=== PATIENT | female | born 1990 | race Caucasian/White ===

== ENCOUNTER 2019-01-21 04:05 | Observation (INO) | payer MEDICAID ==
[~2019-01-21] VITALS: Ht 162.6 cm; Wt 60.5 kg
[2019-01-21] MEDS ORDERED: ADENOSINE 6 MG/2 ML ONE (04:18)
[2019-01-21] MEDS ORDERED: LORazepam 2 MG/ML, 1ML ONE ×2 (04:33→05:12)
[2019-01-21 04:55] LABS: BASOPHILS # (AUTO) 0.06 x10^3/uL (0-0.1); BASOPHILS % (AUTO) 1 % (0-1); EOSINOPHILS # (AUTO) 0.11 x10^3/uL (0-0.4); EOSINOPHILS % (AUTO) 1 % (1-7); LYMPHOCYTES # (AUTO) 3.01 x10^3/uL (1-3.4); LYMPHOCYTES % (AUTO) 36 % (22-44); MD NO; MEAN CORPUSCULAR HEMOGLOBIN 30.6 pg (27.0-34.8); MEAN CORPUSCULAR HGB CONC 33.1 g/dL (32.4-35.8); MEAN CORPUSCULAR VOLUME 92.6 fL (80-100); MEAN PLATELET VOLUME 8.1 fL (7.4-10.4); MONOCYTES # (AUTO) 0.62 x10^3/uL (0.2-0.8); MONOCYTES % (AUTO) 7 % (2-9); NEUTROPHILS # (AUTO) 4.54 x10^3/uL (1.8-6.8); NEUTROPHILS % (AUTO) 55 % (42-75); PLATELET COUNT 299 x10^3/uL (130-400); RED BLOOD COUNT 4.62 x10^6/uL (3.82-5.3); RED CELL DISTRIBUTION WIDTH 13.1 % (9.6-15.2)
--- NOTE | 2019-01-21 05:00 | NUR ---
PT IN HOSPITAL GOWN. PT HOOKED UP TO JONO FOR ADENESINE ADMIN. FLUIDS INFUSING. MINIMAL IMPROVEMENT IN PT HR AFTER ADENESINE ADMIN. ATTEMPTING SECOND IV PLACEMENT AT THIS TIME. PT C/O BILAT LEG PAIN FROM SHAKES. PT STATED HAS TAKEN ADRIFANIL AT 0600 YESTERDAY. WAS TAKING KRADEN BUT STOPPED.
[2019-01-21 05:02] LABS: ANION GAP 11 mmol/L (5-15); CALCIUM 8.5 mg/dL (8.5-10.1); CHLORIDE 111 mmol/L (98-107); CREATININE 0.81 mg/dL (0.55-1.02)
[2019-01-21 05:23] LABS: SALICYLATE LEVEL < 1.7 mg/dL (2.8-20.0)
[2019-01-21] MEDS ORDERED: ADENOSINE 6 MG/2 ML IVPush ONE ×2 (05:30)
[2019-01-21] MEDS ORDERED: SODIUM CHLORIDE 0.9% 1,000ML IVBOLUS ONE (05:30)
[2019-01-21] MEDS ORDERED: LORazepam 2 MG/ML, 1ML IVPush ONE (05:30)
[2019-01-21] MEDS ORDERED: POTASSIUM CHLORIDE 20 MEQ in SODIUM CHLORIDE 0.9% 250 ML IV ONE (05:30)
--- NOTE | 2019-01-21 05:45 | NUR ---
PT ABLE TO USE BEDSIDE COMMODE WITH ONE PERSON ASSIST. PT HR REMAINS 140s. BILAT BEDRAILS UP. WILL CONTINUE TO MONITOR.
[2019-01-21 06:09] LABS: AMPHETAMINE SCREEN, URINE Negative (Negative); BARBITURATE SCREEN, URINE Negative (Negative); BENZODIAZEPINE SCREEN, URINE Negative (Negative); CANNABINOID SCREEN, URINE Positive (Negative); COCAINE SCREEN, URINE Negative (Negative); METHADONE SCREEN, URINE Negative (Negative); OPIATE SCREEN, URINE Negative (Negative)
--- NOTE | 2019-01-21 06:26 | NUR ---
PT RESTING CALMLY IN BED. NO C/O CHEST PAIN. HR 144, OTHER VSS, SEE CHARTED. PT TO BE ADMITTED. WILL CONTINUE TO MONITOR.
--- NOTE | 2019-01-21 06:56 | NUR ---
REPORT TO ASHLYN Delacruz
--- NOTE | 2019-01-21 07:15 | NUR ---
OBTAINED REPORT FROM DARYL RODRIGUEZ
--- NOTE | 2019-01-21 07:35 | NUR ---
PT IS RESTING IN BED COMFORTABLY. AT BEDSIDE. PT STILL TACHY AND HYPOTENTSIVE.
--- NOTE | 2019-01-21 09:19 | NUR ---
REPORT GIVEN TO MARCIO
[2019-01-21 12:59] VITALS: BP 120/70
[2019-01-21] MEDS ORDERED: ONDANSETRON ODT 4 MG PO PRN (15:30)
[2019-01-21] MEDS ORDERED: LABETALOL 5MG/ML, 20ML IVPush PRN (15:30)
[2019-01-21] MEDS ORDERED: ONDANSETRON 2MG/ML, 2ML IVPush PRN (15:30)
[2019-01-21] MEDS ORDERED: POLYETHYLENE GLYCOL 17 GM PACKET PO PRN (15:30)
[2019-01-21 16:29] LABS: FREE T4 (FREE THYROXINE) 0.85 ng/dL (0.76-1.46)
[2019-01-21] MEDS: SODIUM CHLORIDE 0.9% 1,000 ML IV SCH ×2 (17:00→23:23)
[2019-01-21 19:22] VITALS: BP 109/67
[2019-01-21] MEDS ORDERED: IBUPROFEN 200 MG TABLET PO PRN (22:00)
[2019-01-21] MEDS ORDERED: POTASSIUM CHLORIDE 20 MEQ TAB.ER.PRT PO ONE (23:00)
[2019-01-21 23:37] LABS: TROPONIN I < 0.015 ng/mL (0.000-0.045)
[2019-01-22] VITALS (7 sets, daily range): BP systolic 97–109; BP diastolic 60–72
[2019-01-22 04:23] LABS: BASOPHILS # (AUTO) 0.03 x10^3/uL (0-0.1); BASOPHILS % (AUTO) 0 % (0-1); EOSINOPHILS # (AUTO) 0.23 x10^3/uL (0-0.4); EOSINOPHILS % (AUTO) 4 % (1-7); LYMPHOCYTES % (AUTO) 25 % (22-44); MD NO; MEAN CORPUSCULAR HEMOGLOBIN 31.4 pg (27.0-34.8); MEAN CORPUSCULAR HGB CONC 32.9 g/dL (32.4-35.8); MEAN CORPUSCULAR VOLUME 95.5 fL (80-100); MEAN PLATELET VOLUME 8.6 fL (7.4-10.4); MONOCYTES # (AUTO) 0.54 x10^3/uL (0.2-0.8); MONOCYTES % (AUTO) 8 % (2-9); NEUTROPHILS # (AUTO) 4.27 x10^3/uL (1.8-6.8); NEUTROPHILS % (AUTO) 63 % (42-75); PLATELET COUNT 186 x10^3/uL (130-400); RED BLOOD COUNT 4.31 x10^6/uL (3.82-5.3); RED CELL DISTRIBUTION WIDTH 13.8 % (9.6-15.2)
[2019-01-22 04:30] LABS: ALANINE AMINOTRANSFERASE 14 U/L (12-78); CHLORIDE 115 mmol/L (98-107)
[2019-01-22 04:41] LABS: ALBUMIN 3.3 g/dL (3.4-5.0); ALKALINE PHOSPHATASE 45 U/L (45-117); ANION GAP 8 mmol/L (5-15); BILIRUBIN,TOTAL 0.2 mg/dL (0.2-1.0); CALCIUM 7.8 mg/dL (8.5-10.1); CREATININE 0.64 mg/dL (0.55-1.02); TOTAL PROTEIN 6.2 g/dL (6.4-8.2); TROPONIN I < 0.015 ng/mL (0.000-0.045)
[2019-01-22] MEDS: SODIUM CHLORIDE 0.9% 1,000 ML IV SCH (08:23)
[2019-01-22] MEDS ORDERED: SENNA/DOCUSATE TABLET PO SCH (09:00)
[2019-01-22] MEDS ORDERED: SODIUM CHLORIDE 0.9% 1,000 ML IV SCH (15:09)
== END 2019-01-22 14:03 | disposition home or self-care (01) ==
LOC: ED 06:10 → INTOOBSV 06:14 → EDIP 06:14 → ED 07:40 → 5SO 09:35 → DCLOUNGE 01-22 14:01
PROVIDERS: ADMIT Hospitalist; ATTEND Hospitalist
DX: R00.2 Palpitations (principal); R55 Syncope and collapse; R00.0 Tachycardia, unspecified; F41.9 Anxiety disorder, unspecified; E87.6 Hypokalemia; I95.9 Hypotension, unspecified; F32.9 Major depressive disorder, single episode, unspecified; F10.10 Alcohol abuse, uncomplicated; F12.10 Cannabis abuse, uncomplicated
CPT/HCPCS: 36415; 71046; 80048; 80053; 80307; 82040; 82550; 82962; 83735; 84100; 84132; 84439; 84443; 84484; 84702; 85025; 85379; 93005; 93306; 96361; 96365; 96366; 96375; 99291; G0378; J0153; J2060; J3480; J7030; J7050; 84703